=== PATIENT | male | born 1935 | race Caucasian/White ===

== ENCOUNTER 2017-12-02 15:00 | Emergency (ER) | payer MEDICARE, OTHER ==
[~2017-12-02] VITALS: Ht 167.6 cm; Wt 71.8 kg
[2017-12-02] MEDS ORDERED: SODIUM CHLORIDE FLUSH 10ML SYR IVF ONE (15:30)
[2017-12-02 15:52] LABS: BASOPHILS # (AUTO) 0.02 x10^3/uL (0-0.1); BASOPHILS % (AUTO) 0 % (0-1); EOSINOPHILS # (AUTO) 0.03 x10^3/uL (0-0.4); EOSINOPHILS % (AUTO) 1 % (1-7); LYMPHOCYTES % (AUTO) 17 % (22-44); MD NO; MEAN CORPUSCULAR HEMOGLOBIN 31.9 pg (27.5-34.5); MEAN CORPUSCULAR HGB CONC 34.1 g/dL (33.2-36.2); MEAN CORPUSCULAR VOLUME 93.3 fL (81-97); MEAN PLATELET VOLUME 8.4 fL (7.4-10.4); MONOCYTES # (AUTO) 0.31 x10^3/uL (0.2-0.8); MONOCYTES % (AUTO) 5 % (2-9); NEUTROPHILS # (AUTO) 5.14 x10^3/uL (1.8-6.8); NEUTROPHILS % (AUTO) 78 % (42-75); PLATELET COUNT 232 x10^3/uL (130-400); RED CELL DISTRIBUTION WIDTH 13.9 % (9.4-14.8)
[2017-12-02] MEDS ORDERED: ONDANSETRON 2MG/ML, 2ML IVPush ONE (16:00)
[2017-12-02] MEDS ORDERED: SODIUM CHLORIDE 0.9% 1,000ML IVBOLUS ONE (16:00)
[2017-12-02] MEDS ORDERED: MORPHINE SULFATE 4 MG/ML, 1ML IVPush PRN (16:00)
[2017-12-02 16:15] LABS: ANION GAP 6 mmol/L (5-15); CALCIUM 9.5 mg/dL (8.5-10.1); CHLORIDE 107 mmol/L (98-107); CREATININE 0.85 mg/dL (0.7-1.3)
[2017-12-02 16:16] LABS: ALANINE AMINOTRANSFERASE 23 U/L (12-78); ALBUMIN 3.8 g/dL (3.4-5.0)
[2017-12-02 16:18] LABS: ALKALINE PHOSPHATASE 58 U/L (45-117); BILIRUBIN,TOTAL 1.3 mg/dL (0.2-1.0); TOTAL PROTEIN 7.4 g/dL (6.4-8.2)
[2017-12-02] MEDS ORDERED: ONDANSETRON 2MG/ML, 2ML ONE (16:43)
[2017-12-02] MEDS ORDERED: MORPHINE SULFATE 4 MG/ML, 1ML ONE (16:44)
[2017-12-02] MEDS ORDERED: OMNIPAQUE 350 MG/ML, 100ML BOTTLE ONE (17:06)
[2017-12-02 17:56] LABS: MICROSCOPIC NOT IND
[2017-12-02 18:02] LABS: CULTURE INDICATED? NO
[2017-12-02 18:40] VITALS: BP 124/86
== END 2017-12-02 18:44 | disposition home or self-care (01) ==
LOC: ED 18:05
DX: N40.0 Benign prostatic hyperplasia without lower urinary tract symptoms (principal); R10.33 Periumbilical pain
CPT/HCPCS: 36415; 74177; 80053; 81003; 83690; 85025; 96374; 96375; 99285; J2405; J7030; Q9967

== ENCOUNTER 2017-12-03 07:02 | Emergency (ER) | payer MEDICARE, OTHER ==
[~2017-12-03] VITALS: Ht 165.1 cm; Wt 73.0 kg
[2017-12-03] MEDS ORDERED: ONDANSETRON 2MG/ML, 2ML ONE (07:27)
[2017-12-03] MEDS ORDERED: MORPHINE SULFATE 4 MG/ML, 1ML ONE (07:27)
[2017-12-03] MEDS ORDERED: ONDANSETRON 2MG/ML, 2ML IVPush ONE (07:30)
[2017-12-03] MEDS ORDERED: MORPHINE SULFATE 4 MG/ML, 1ML IVPush PRN (07:30)
[2017-12-03 07:48] LABS: ALANINE AMINOTRANSFERASE 22 U/L (12-78); ALBUMIN 3.3 g/dL (3.4-5.0); ANION GAP 6 mmol/L (5-15); BASOPHILS # (AUTO) 0.02 x10^3/uL (0-0.1); BASOPHILS % (AUTO) 0 % (0-1); CALCIUM 8.8 mg/dL (8.5-10.1); CHLORIDE 108 mmol/L (98-107); EOSINOPHILS # (AUTO) 0.06 x10^3/uL (0-0.4); EOSINOPHILS % (AUTO) 1 % (1-7); LYMPHOCYTES # (AUTO) 1.11 x10^3/uL (1-3.4); LYMPHOCYTES % (AUTO) 24 % (22-44); MD NO; MEAN CORPUSCULAR HEMOGLOBIN 31.3 pg (27.5-34.5); MEAN CORPUSCULAR HGB CONC 33.5 g/dL (33.2-36.2); MEAN CORPUSCULAR VOLUME 93.2 fL (81-97); MEAN PLATELET VOLUME 7.9 fL (7.4-10.4); MONOCYTES # (AUTO) 0.29 x10^3/uL (0.2-0.8); MONOCYTES % (AUTO) 6 % (2-9); NEUTROPHILS # (AUTO) 3.21 x10^3/uL (1.8-6.8); NEUTROPHILS % (AUTO) 68 % (42-75); PLATELET COUNT 211 x10^3/uL (130-400); RED BLOOD COUNT 4.67 x10^6/uL (4.38-5.82); RED CELL DISTRIBUTION WIDTH 13.7 % (9.4-14.8)
[2017-12-03 07:51] LABS: ALKALINE PHOSPHATASE 49 U/L (45-117); BILIRUBIN,TOTAL 1.1 mg/dL (0.2-1.0); TOTAL PROTEIN 6.5 g/dL (6.4-8.2)
[2017-12-03] MEDS ORDERED: DICYCLOMINE 10 MG/ML, 2ML ONE (09:25)
[2017-12-03] MEDS ORDERED: DICYCLOMINE 10 MG/ML, 2ML IM ONE (09:30)
[2017-12-03 09:31] VITALS: BP 110/60
== END 2017-12-03 09:44 | disposition home or self-care (01) ==
LOC: ED 08:56
DX: N50.3 Cyst of epididymis (principal); R10.84 Generalized abdominal pain
CPT/HCPCS: 36415; 76870; 80053; 85025; 96372; 96374; 96375; 99285; J0500; J2405

== ENCOUNTER 2018-07-21 21:18 | Emergency (ER) | payer MEDICARE, OTHER ==
[~2018-07-21] VITALS: Ht 165.1 cm; Wt 71.4 kg
--- NOTE | 2018-07-21 22:24 | NUR ---
pt to room from lobby
[2018-07-22 00:24] VITALS: BP 131/74
== END 2018-07-22 00:25 | disposition home or self-care (01) ==
LOC: ED 23:59
DX: M25.521 Pain in right elbow (principal); G44.209 Tension-type headache, unspecified, not intractable
CPT/HCPCS: 99283

== ENCOUNTER 2018-08-03 15:48 | Emergency (ER) | payer MEDICARE, OTHER ==
[~2018-08-03] VITALS: Ht 165.1 cm; Wt 68.0 kg
[2018-08-03] MEDS ORDERED: DIAZEPAM 5 MG TABLET ONE (17:11)
[2018-08-03] MEDS ORDERED: KETOROLAC 30 MG/1 ML ONE (17:11)
--- NOTE | 2018-08-03 17:20 | NUR ---
Pt medicated for OROPEZA but is concerned that he has had continued ABD pain 12hr/day for several months. Has been admitted for ABD pain before & states he had CT's, EGD, colonoscopy but still has the pain. States he does not want to go home w/out answer. Info relayed to GYPSY Gonzalez
[2018-08-03] MEDS ORDERED: KETOROLAC 30 MG/1 ML IM ONE (17:30)
[2018-08-03] MEDS ORDERED: DIAZEPAM 5 MG TABLET PO ONE (17:30)
--- NOTE | 2018-08-03 18:00 | NUR ---
received report from stacy peoples. pt transferred to room 15
--- NOTE | 2018-08-03 18:01 | NUR ---
pt with a history of abd pain x 1 year. pt has been to 3 different hospitals and has seen a gi doctor. pt placed on bp and cont. pulse oximeter.
[2018-08-03 18:03] LABS: BASOPHILS # (AUTO) 0.03 x10^3/uL (0-0.1); BASOPHILS % (AUTO) 1 % (0-1); EOSINOPHILS # (AUTO) 0.03 x10^3/uL (0-0.4); EOSINOPHILS % (AUTO) 0 % (1-7); LYMPHOCYTES # (AUTO) 1.61 x10^3/uL (1-3.4); LYMPHOCYTES % (AUTO) 24 % (22-44); MD NO; MEAN CORPUSCULAR HEMOGLOBIN 31.1 pg (27.5-34.5); MEAN CORPUSCULAR HGB CONC 34.1 g/dL (33.2-36.2); MEAN CORPUSCULAR VOLUME 91.2 fL (81-97); MEAN PLATELET VOLUME 7.7 fL (7.4-10.4); MONOCYTES % (AUTO) 6 % (2-9); NEUTROPHILS # (AUTO) 4.58 x10^3/uL (1.8-6.8); NEUTROPHILS % (AUTO) 69 % (42-75); PLATELET COUNT 269 x10^3/uL (130-400); RED BLOOD COUNT 4.72 x10^6/uL (4.38-5.82); RED CELL DISTRIBUTION WIDTH 14.4 % (9.4-14.8)
[2018-08-03 18:10] LABS: CHLORIDE 106 mmol/L (98-107)
[2018-08-03 18:16] LABS: ALANINE AMINOTRANSFERASE 22 U/L (12-78); ALBUMIN 4.4 g/dL (3.4-5.0); ALKALINE PHOSPHATASE 62 U/L (45-117); ANION GAP 6 mmol/L (5-15); BILIRUBIN,TOTAL 1.8 mg/dL (0.2-1.0); CALCIUM 9.5 mg/dL (8.5-10.1); CREATININE 0.97 mg/dL (0.7-1.3); TOTAL PROTEIN 7.8 g/dL (6.4-8.2)
--- NOTE | 2018-08-03 19:05 | NUR ---
REPORT GIVEN TO ANIYA BURROWS
--- NOTE | 2018-08-03 19:15 | NUR ---
UA OBTAINED AND TUBED TO LAB. PT STATES HIS HEADACHE HAS RESOLVED. INFORMED.
[2018-08-03 19:23] LABS: MICROSCOPIC NOT IND
[2018-08-03 19:28] LABS: CULTURE INDICATED? NO
[2018-08-03 20:41] VITALS: BP 112/74
== END 2018-08-03 20:43 | disposition home or self-care (01) ==
LOC: ED 19:34
DX: G89.29 Other chronic pain (principal); R10.84 Generalized abdominal pain; G44.219 Episodic tension-type headache, not intractable
CPT/HCPCS: 36415; 76700; 80053; 81003; 83690; 85025; 96372; 99284; J1885; 99283